=== PATIENT | female | born 1950 | race Caucasian/White ===

== ENCOUNTER 2017-04-26 23:44 | Emergency (ER) | payer OTHER ==
[~2017-04-26] VITALS: Ht 165.1 cm; Wt 81.2 kg
--- NOTE | 2017-04-26 23:44 | NUR ---
Patient to ER bed 5 to gown for evaluation. Side rails up. Report given to Pito MARIE.
--- NOTE | 2017-04-26 23:45 | NUR ---
Pt came in via ambulance. AAOX4 with complaint of itchiness, nausea, dizziness and chest tightness. Prior to ER Pt had bug bite from last night and used topical benadryl for treatment at home. No fever noted. Has HX of mitral valve prolapse and DNC. No other complaints noted. Will continue to monitor Pt.
[2017-04-26 23:50] VITALS: BP_SYST 155
[2017-04-27 00:15] LABS: BASOPHILS # (AUTO) 0.1 K/uL (0.0-0.2); BASOPHILS % (AUTO) 0.9 % (0.0-2.0); EOSINOPHILS # (AUTO) 0.2 K/uL (0.0-0.4); EOSINOPHILS % (AUTO) 2.9 % (0.0-4.0); HEMATOCRIT 36.5 % (36-48); HEMOGLOBIN 11.8 g/dL (12.0-16.0); LYMPHOCYTES # (AUTO) 1.6 K/uL (1.0-5.5); LYMPHOCYTES % (AUTO) 23.4 % (20.5-51.5); MEAN CORPUSCULAR HEMOGLOBIN 26 pg (27-31); MEAN CORPUSCULAR HGB CONC 32 % (32-36); MEAN CORPUSCULAR VOLUME 79 fL (79.0-98.0); MONOCYTES # (AUTO) 0.6 K/uL (0.0-1.0); MONOCYTES % (AUTO) 8.8 % (1.7-9.3); NEUTROPHILS # (AUTO) 4.3 K/uL (1.8-7.7); PLATELET COUNT (AUTO) 204 K/uL (130-430); RED CELL DISTRIBUTION WIDTH 14.4 % (9.0-15.0); WHITE BLOOD COUNT (AUTO) 6.8 K/uL (4.8-10.8)
[2017-04-27 00:26] LABS: CALCIUM 9.4 mg/dL (8.4-11.0); CREATININE 0.8 mg/dL (0.55-1.30); POTASSIUM 3.7 mmol/L (3.5-5.1)
[2017-04-27 00:28] LABS: PROTHROMBIN TIME 9.8 SECS (9.5-12.5)
[2017-04-27 00:32] LABS: ALBUMIN 3.4 g/dL (3.4-4.8); TOTAL BILIRUBIN 0.4 mg/dL (0.0-1.0)
--- NOTE | 2017-04-27 00:35 | NUR ---
ER MD Ngo at bedside for medical evaulation.
[2017-04-27 00:45] LABS: BILIRUBIN,URINE NEGATIVE (NEGATIVE); BLOOD, URINE NEGATIVE (NEGATIVE); CLARITY/URINE CLEAR (CLEAR); COLOR,URINE YELLOW (YELLOW); GLUCOSE,URINE NEGATIVE (NEGATIVE); KETONES,URINE NEGATIVE (NEGATIVE); LEUKOCYTE ESTERASE ,URINE TRACE (NEGATIVE); NITRITE, URINE NEGATIVE (NEGATIVE); PH,URINE 7.5 (5.0-8.0); PROTEIN URINE NEGATIVE (NEGATIVE); UROBILINOGEN,URINE 0.2 (0.2-1.0)
[2017-04-27 00:55] LABS: BACTERIA,URINE FEW /HPF (None Seen); MUCUS,URINE None Seen /LPF (None Seen); RBC,URINE 0-3 /HPF (0-3)
[2017-04-27 01:48] VITALS: BP_SYST 136
--- NOTE | 2017-04-27 01:48 | NUR ---
Patient given written and verbal discharge instructions and verbalizes understanding. ER MD Ngo discussed with patient the results and treatment provided. Patient in stable condition. ID arm band removed. Rx of triamcinolone given. Patient educated on pain management and to follow up with PMD. Pain Scale 0/10. Opportunity for questions provided and answered.
== END 2017-04-27 01:48 | disposition home or self-care (01) ==
LOC: SED 23:44
DX: S00.86XA Insect bite (nonvenomous) of other part of head, initial encounter (principal); R42 Dizziness and giddiness; R07.89 Other chest pain; R11.0 Nausea; E78.00 Pure hypercholesterolemia, unspecified; W57.XXXA Bitten or stung by nonvenomous insect and other nonvenomous arthropods, initial encounter; Y93.89 Activity, other specified; Y92.89 Other specified places as the place of occurrence of the external cause; Y99.8 Other external cause status
CPT/HCPCS: 36415; 71010; 80053; 81000-TC; 82550-TC; 83880; 84484; 85025; 85610-TC; 93005; 99285

== ENCOUNTER 2019-02-06 12:52 | Emergency (ER) | payer OTHER ==
[~2019-02-06] VITALS: Ht 165.1 cm; Wt 81.6 kg
[2019-02-06] MEDS ORDERED: FLUORESCEIN SODIUM 1 MG OPHTHALMIC STRIP OP ONE (12:53)
[2019-02-06] MEDS ORDERED: TETRACAINE HCL 0.5% OPHTHALMIC DROPS 15 ML OP ONE (12:53)
[2019-02-06 13:08] VITALS: BP_SYST 160
[2019-02-06 14:25] VITALS: BP_SYST 152
== END 2019-02-06 14:22 | disposition home or self-care (01) ==
LOC: SED 12:52
DX: S05.02XA Injury of conjunctiva and corneal abrasion without foreign body, left eye, initial encounter (principal); Z86.79 Personal history of other diseases of the circulatory system; Z88.0 Allergy status to penicillin; Z88.5 Allergy status to narcotic agent; Z88.6 Allergy status to analgesic agent; X58.XXXA Exposure to other specified factors, initial encounter; Y93.H2 Activity, gardening and landscaping; Y92.69 Other specified industrial and construction area as the place of occurrence of the external cause; Y99.8 Other external cause status; E78.00 Pure hypercholesterolemia, unspecified
CPT/HCPCS: 99283

== ENCOUNTER 2020-08-30 12:13 | Inpatient (IN) | payer OTHER ==
[~2020-08-30] VITALS: Ht 165.1 cm; Wt 79.4 kg
--- NOTE | 2020-08-30 12:20 | NUR ---
RECEIVED AND IN ROOM 4. BIB FROM HOME FOR VERTIGO SINCE AM
[2020-08-30 12:23] VITALS: BP_SYST 197
--- NOTE | 2020-08-30 12:29 | NUR ---
DR HERNANDEZ IN TO ASSESSS
[2020-08-30] MEDS ORDERED: MECLIZINE HCL 25 MG TABLET (ANITVERT) PO ONE (12:45)
[2020-08-30 12:58] LABS: BASOPHILS % (AUTO) 0.6 % (0.0-2.0); EOSINOPHILS # (AUTO) 0.1 K/uL (0.0-0.4); EOSINOPHILS % (AUTO) 1.5 % (0.0-4.0); HEMATOCRIT 47.4 % (36-48); HEMOGLOBIN 16.3 g/dL (12.0-16.0); LYMPHOCYTES % (AUTO) 16.4 % (20.5-51.5); MEAN CORPUSCULAR HEMOGLOBIN 31 pg (27-31); MEAN CORPUSCULAR HGB CONC 34 % (32-36); MEAN CORPUSCULAR VOLUME 90 fL (79.0-98.0); MONOCYTES # (AUTO) 0.4 K/uL (0.0-1.0); MONOCYTES % (AUTO) 7.4 % (1.7-9.3); NEUTROPHILS # (AUTO) 4.5 K/uL (1.8-7.7); NEUTROPHILS % (AUTO) 74.1 % (40.0-70.0); PLATELET COUNT (AUTO) 181 K/uL (130-430); RED BLOOD CELL COUNT(AUTO) 5.29 MIL/uL (4.2-6.2); RED CELL DISTRIBUTION WIDTH 12.9 % (9.0-15.0); WHITE BLOOD COUNT (AUTO) 6.1 K/uL (4.8-10.8)
[2020-08-30 13:10] LABS: ANION GAP 12 (5-15); CALCIUM 9.3 mg/dL (8.4-11.0); CHLORIDE 107 mmol/L (98-107); CREATININE 0.91 mg/dL (0.55-1.30); GLUCOSE 113 mg/dL (70-99); POTASSIUM 3.7 mmol/L (3.5-5.1); SODIUM SERUM 144 mmol/L (136-145); UREA NITROGEN, BLOOD 15 mg/dL (8-21)
[2020-08-30 13:13] LABS: GFR AFRICAN AMERICAN 79 mL/min (>90); PROTHROMBIN TIME 10.1 SECS (9.5-12.5)
[2020-08-30 13:18] LABS: ALANINE AMINOTRANSFERASE 31 U/L (12-78); ALBUMIN 3.6 g/dL (3.4-4.8); ASPARTATE AMINOTRANSFERASE 29 U/L (10-37); TOTAL BILIRUBIN 0.8 mg/dL (0.0-1.0)
--- NOTE | 2020-08-30 13:23 | NUR ---
OFF TO CT HEAD. PT ALERT, CALM, NO DISTRESS
--- NOTE | 2020-08-30 14:07 | NUR ---
REPORTS A DECREASE IN DIZZINESS
--- NOTE | 2020-08-30 14:47 | NUR ---
DR HERNANDEZ IN TO REASSESS
--- NOTE | 2020-08-30 15:08 | NUR ---
VIDEO NEURO EXAM SET UP IN ROOM.
--- NOTE | 2020-08-30 15:40 | NUR ---
UP AMBULATING STEADY TO BATHROOM, BACK IN BED NO DISTRESS
--- NOTE | 2020-08-30 16:32 | NUR ---
ADMIT ORDERS TO TELE DX R/O STROKE BJ LUBIN
--- NOTE | 2020-08-30 16:34 | NUR ---
Note hudson in ED - 08/30/20 at 1648 by KULWANT Patient does not wish to proceed with medical care recommended by ED[facility]. Patient given information related to possible complications, up to and including , which could occur as a result of leaving hospital at this time. Patient verbalizes understanding of risks involved leaving against medical advice. Patient has signed AMA form.
--- NOTE | 2020-08-30 16:54 | NUR ---
Patient will be admitted to care of [facility]. Admitted to 104 unit. Will go to room TELE. Belongings list completed. Complete and up to date summary report printed. SBAR report to be given at bedside with opportunity for questions.
[2020-08-30] MEDS ORDERED: POTASSIUM CHLORIDE 20 MEQ TAB.PRT.SR PO PRN (17:00)
[2020-08-30] MEDS ORDERED: ZOLPIDEM TARTRATE 5 MG TABLET PO PRN (17:00)
[2020-08-30] MEDS ORDERED: MAGNESIUM SULFATE 50 ML IV PRN (17:00)
[2020-08-30] MEDS ORDERED: ONDANSETRON HCL 4 MG/2 ML VIAL IVP PRN (17:00)
[2020-08-30] MEDS ORDERED: ACETAMINOPHEN 325 MG TABLET PO PRN (17:00)
[2020-08-30] MEDS ORDERED: DOCUSATE SODIUM 100 MG CAPSULE PO PRN (17:00)
[2020-08-30] MEDS ORDERED: MUPIROCIN 2% TOPICAL OINTMENT 22 GM NS PRN (17:00)
[2020-08-30] MEDS ORDERED: LORazepam 2 MG/ML VIAL IVP PRN (17:00)
[2020-08-30] MEDS: NACL 0.9% 1,000 ML IV SCH (17:00)
--- NOTE | 2020-08-30 17:00 | NUR ---
ADMISSION: The patient, [place], 69 y/o, F admitted by BERNARD LUBIN DO, was given written information regarding hospital policies, unit procedures and contact persons. obtained VS, and completed admission assessment
[2020-08-30 17:13] VITALS: BP_SYST 157
--- NOTE | 2020-08-30 17:25 | NUR ---
CONSULTATION PAGED REASON FOR CONSULTATION:R/O STROKE WAS CONSULT CALLED?Y PERSON WHO WAS NOTIFIED:'S PAGER PAGED CONSULTING PHYSICIAN:YANIQUE HORVATH [employer] SPECIALTY:NEURO [employer] PHONE NUMBER:[phone] REQUESTING PHYSICIAN:DR.SINGHMIGDALIA
--- NOTE | 2020-08-30 18:17 | NUR ---
nurse note patient in bed, respirations even, non labored, bed in low and locked position, called dietary for patients dinner
[2020-08-30 20:00] VITALS: BP_SYST 170
[2020-08-30] MEDS: METOPROLOL TARTRATE 25 MG TABLET PO SCH (20:58)
[2020-08-30] MEDS: HEPARIN SODIUM,PORCINE 5,000 UNITS/ML VIAL SUBCUT SCH (21:00)
[2020-08-30] MEDS ORDERED: HEPARIN SODIUM,PORCINE 5,000 UNITS/ML VIAL ONE (21:11)
[2020-08-31] VITALS: BP_SYST 129
[2020-08-31] MEDS: NACL 0.9% 1,000 ML IV SCH ×2 (07:03→21:36)
[2020-08-31 07:38] LABS: BASOPHILS # (AUTO) 0.1 K/uL (0.0-0.2); BASOPHILS % (AUTO) 0.9 % (0.0-2.0); EOSINOPHILS # (AUTO) 0.2 K/uL (0.0-0.4); EOSINOPHILS % (AUTO) 2.6 % (0.0-4.0); HEMATOCRIT 43.8 % (36-48); LYMPHOCYTES # (AUTO) 1.8 K/uL (1.0-5.5); LYMPHOCYTES % (AUTO) 28.3 % (20.5-51.5); MEAN CORPUSCULAR HEMOGLOBIN 31 pg (27-31); MEAN CORPUSCULAR HGB CONC 34 % (32-36); MEAN CORPUSCULAR VOLUME 91 fL (79.0-98.0); MONOCYTES # (AUTO) 0.6 K/uL (0.0-1.0); MONOCYTES % (AUTO) 9.9 % (1.7-9.3); NEUTROPHILS # (AUTO) 3.7 K/uL (1.8-7.7); NEUTROPHILS % (AUTO) 58.3 % (40.0-70.0); PLATELET COUNT (AUTO) 174 K/uL (130-430); RED BLOOD CELL COUNT(AUTO) 4.83 MIL/uL (4.2-6.2); RED CELL DISTRIBUTION WIDTH 13.1 % (9.0-15.0); WHITE BLOOD COUNT (AUTO) 6.3 K/uL (4.8-10.8)
[2020-08-31 07:46] LABS: CALCIUM 8.4 mg/dL (8.4-11.0); CREATININE 0.93 mg/dL (0.55-1.30); POTASSIUM 4.5 mmol/L (3.5-5.1)
[2020-08-31 08:00] VITALS: BP_SYST 145
--- NOTE | 2020-08-31 08:26 | NUR ---
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
[2020-08-31] MEDS ORDERED: HEPARIN SODIUM,PORCINE 5,000 UNITS/ML VIAL ONE ×2 (08:45→20:34)
[2020-08-31] MEDS: METOPROLOL TARTRATE 25 MG TABLET PO SCH ×2 (08:47→20:45)
[2020-08-31] MEDS: HEPARIN SODIUM,PORCINE 5,000 UNITS/ML VIAL SUBCUT SCH ×2 (08:54→20:49)
--- NOTE | 2020-08-31 09:25 | NUR ---
PHYSICAL THERAPY EVALUATION HAS BEEN COMPLETED. PATIENT IS SAFE TO AMBULATE WITH NURSING SUPERVISION. SHE DOES NOT NEED FURTHER PHYSICAL THERAPY. (INDEPENDENT BED MOBILITY, TRANSFERS, AND GAIT WITHOUT AN ASSISTIVE DEVICE.)
[2020-08-31 12:43] VITALS: BP_SYST 178
--- NOTE | 2020-08-31 14:16 | NUR ---
MRI PT OFF THE FLOOR AT THIS TIME TO MRI
--- NOTE | 2020-08-31 14:55 | NUR ---
MRI PT RETURNED FROM MRI. PT TOLERATED WELL.
[2020-08-31 16:38] VITALS: BP_SYST 148
[2020-08-31 20:00] VITALS: BP_SYST 145
[2020-09-01] VITALS: BP_SYST 154
--- NOTE | 2020-09-01 00:41 | NUR ---
CONSULTATION CALLED FOR DR Russell COHEN IS IS [employer] ORDER BY DR. LUBIN FOR CONSULT OF INT DIZZINESS HX OF MITRAL VALVE PROLAPSE SPOKE WITH RONAN
--- NOTE | 2020-09-01 07:22 | NUR ---
RECEIVED REPORT FROM MINNA SINGH, PT OOB IN CHAIR, RESP REG, NON-LABORED, VS DONE WNL, PT STATES SHE IS PENDING D/C TODAY.
[2020-09-01 07:25] VITALS: BP_SYST 148
[2020-09-01 07:25] LABS: BASOPHILS # (AUTO) 0.1 K/uL (0.0-0.2); BASOPHILS % (AUTO) 0.8 % (0.0-2.0); EOSINOPHILS # (AUTO) 0.2 K/uL (0.0-0.4); EOSINOPHILS % (AUTO) 3.4 % (0.0-4.0); HEMATOCRIT 43.1 % (36-48); HEMOGLOBIN 15.1 g/dL (12.0-16.0); LYMPHOCYTES # (AUTO) 1.8 K/uL (1.0-5.5); MEAN CORPUSCULAR HEMOGLOBIN 31 pg (27-31); MEAN CORPUSCULAR HGB CONC 35 % (32-36); MEAN CORPUSCULAR VOLUME 89 fL (79.0-98.0); MONOCYTES # (AUTO) 0.6 K/uL (0.0-1.0); MONOCYTES % (AUTO) 10.2 % (1.7-9.3); NEUTROPHILS # (AUTO) 3.6 K/uL (1.8-7.7); NEUTROPHILS % (AUTO) 56.6 % (40.0-70.0); PLATELET COUNT (AUTO) 173 K/uL (130-430); RED BLOOD CELL COUNT(AUTO) 4.83 MIL/uL (4.2-6.2); RED CELL DISTRIBUTION WIDTH 12.9 % (9.0-15.0); WHITE BLOOD COUNT (AUTO) 6.3 K/uL (4.8-10.8)
[2020-09-01 08:18] LABS: CALCIUM 8.2 mg/dL (8.4-11.0); CREATININE 0.73 mg/dL (0.55-1.30); POTASSIUM 3.4 mmol/L (3.5-5.1)
[2020-09-01] MEDS ORDERED: LIP20 PO (08:46)
[2020-09-01] MEDS ORDERED: METO25TA6 PO (08:50)
[2020-09-01] MEDS ORDERED: METOPROLOL TARTRATE 25 MG TABLET PO SCH (09:00)
[2020-09-01] MEDS: HEPARIN SODIUM,PORCINE 5,000 UNITS/ML VIAL SUBCUT SCH (09:00)
[2020-09-01] MEDS ORDERED: LISINOPRIL 10 MG TABLET (PRINIVIL) PO SCH (09:00)
[2020-09-01] MEDS ORDERED: HEPARIN SODIUM,PORCINE 5,000 UNITS/ML VIAL ONE (09:15)
[2020-09-01 10:05] LABS: CHOLESTEROL 156 mg/dL (<200); HDL CHOLESTEROL 43 mg/dL (>55); LDL CHOLESTEROL 90 mg/dL (<100); TRIGLYCERIDES 163 mg/dL (30-150)
[2020-09-01 10:38] VITALS: BP_SYST 106
--- NOTE | 2020-09-01 11:00 | NUR ---
D/C Patient Patient given medication reconciliation form and D/C instructions. Exit Care provided. Patient verbalized understanding. MD discussed with patient the results and treatment provided. Ambulatory with steady gait for discharge to home. Patient in stable condition, ID band removed. IV catheter removed, intact and dressing applied, no active bleeding. Rx of given. Patient educated on pain management, and safety at home. All belongings checked and sent with patient. left unit via w/c w/ STRATE[employer]IC [employer]ER, to T car.
== END 2020-09-01 11:18 | disposition home or self-care (01) | DRG 69 ==
LOC: SED 12:13 → STU 15:54
PROVIDERS: ADMIT General Practice; ATTEND General Practice
DX: G45.9 Transient cerebral ischemic attack, unspecified (principal); G90.9 Disorder of the autonomic nervous system, unspecified; G45.0 Vertebro-basilar artery syndrome; I10 Essential (primary) hypertension; E78.5 Hyperlipidemia, unspecified; E78.00 Pure hypercholesterolemia, unspecified; E66.3 Overweight; I16.0 Hypertensive urgency; I95.1 Orthostatic hypotension; Z20.822 Contact with and (suspected) exposure to COVID-19; I34.1 Nonrheumatic mitral (valve) prolapse; Z88.6 Allergy status to analgesic agent; Z88.5 Allergy status to narcotic agent; Z88.0 Allergy status to penicillin; Z68.29 Body mass index [BMI] 29.0-29.9, adult; Z86.73 Personal history of transient ischemic attack (TIA), and cerebral infarction without residual deficits
CPT/HCPCS: 36415; 70450-TC; 70551; 71045; 76376; 80048; 80053; 80061; 83036; 83735-TC; 84443-TC; 84484; 85025; 85610-TC; 93005; 93306; 93880; G0378; J1644; J8597

== ENCOUNTER 2022-09-11 19:21 | Inpatient (IN) | payer OTHER ==
[~2022-09-11] VITALS: Ht 165.1 cm; Wt 76.8 kg
[~2022-09-11 19:21] MED LIST: LIP20 PO; METO25TA6 PO
[2022-09-11 20:01] VITALS: BP_SYST 156
[2022-09-11] MEDS ORDERED: NACL 0.9% 1,000 ML IV ONE (20:15)
[2022-09-11] MEDS ORDERED: MECLIZINE HCL 25 MG TABLET (ANITVERT) PO ONE (20:15)
[2022-09-11] MEDS ORDERED: ONDANSETRON HCL 4 MG/2 ML VIAL IVP ONE ×2 (20:15→23:45)
[2022-09-11] MEDS ORDERED: KETOROLAC TROMETHAMINE 30 MG VIAL IVP ONE (20:15)
[2022-09-11 20:39] LABS: BASOPHILS % (AUTO) 0.5 % (0.0-2.0); EOSINOPHILS % (AUTO) 0.5 % (0.0-4.0); HEMATOCRIT 47.2 % (36-48); HEMOGLOBIN 16.1 g/dL (12.0-16.0); LYMPHOCYTES # (AUTO) 0.3 K/uL (1.0-5.5); LYMPHOCYTES % (AUTO) 3.9 % (20.5-51.5); MEAN CORPUSCULAR HEMOGLOBIN 31 pg (27-31); MEAN CORPUSCULAR HGB CONC 34 % (32-36); MEAN CORPUSCULAR VOLUME 90 fL (79.0-98.0); MONOCYTES # (AUTO) 0.7 K/uL (0.0-1.0); MONOCYTES % (AUTO) 10.1 % (1.7-9.3); NEUTROPHILS # (AUTO) 5.6 K/uL (1.8-7.7); PLATELET COUNT (AUTO) 199 K/uL (130-430); RED BLOOD CELL COUNT(AUTO) 5.25 MIL/uL (4.2-6.2); RED CELL DISTRIBUTION WIDTH 12.8 % (9.0-15.0); WHITE BLOOD COUNT (AUTO) 6.6 K/uL (4.8-10.8)
[2022-09-11 21:00] LABS: CALCIUM 9.5 mg/dL (8.4-11.0); CREATININE 0.93 mg/dL (0.55-1.30)
[2022-09-11 21:09] LABS: ALBUMIN 3.8 g/dL (3.4-4.8); TOTAL BILIRUBIN 0.8 mg/dL (0.0-1.0)
[2022-09-11] MEDS ORDERED: MORPHINE 4 MG INJ. 4 MG/ML VIAL IVP ONE (23:45)
[2022-09-12] MEDS ORDERED: MORPHINE 2 MG/ML INJ. SYRINGE IVP PRN (00:15)
[2022-09-12] MEDS ORDERED: ONDANSETRON HCL 4 MG/2 ML VIAL IVP PRN ×2 (00:15→08:15)
[2022-09-12 00:37] LABS: BILIRUBIN,URINE NEGATIVE (NEGATIVE); BLOOD, URINE NEGATIVE (NEGATIVE); COLOR,URINE YELLOW (YELLOW); GLUCOSE,URINE NEGATIVE (NEGATIVE); KETONES,URINE NEGATIVE (NEGATIVE); LEUKOCYTE ESTERASE ,URINE TRACE (NEGATIVE); NITRITE, URINE NEGATIVE (NEGATIVE); PH,URINE 7.5 (5.0-8.0); PROTEIN URINE NEGATIVE (NEGATIVE); UROBILINOGEN,URINE 0.2 (0.2-1.0)
[2022-09-12 00:54] LABS: CLARITY/URINE HAZY (CLEAR)
[2022-09-12 00:55] LABS: BACTERIA,URINE FEW /HPF (None Seen); RBC,URINE 0-3 /HPF (0-3)
[2022-09-12] MEDS: D5NS 1,000 ML IV SCH ×2 (01:56→13:26)
[2022-09-12 04:53] VITALS: BP_SYST 143
[2022-09-12] MEDS ORDERED: PIPERACILLIN/TAZO 3.375 GM in NS 50 ML IV SCH (06:00)
[2022-09-12 08:00] VITALS: BP_SYST 132
[2022-09-12] MEDS ORDERED: POTASSIUM CHLORIDE 20 MEQ TAB.PRT.SR PO PRN (08:15)
[2022-09-12] MEDS ORDERED: ACETAMINOPHEN 325 MG TABLET PO PRN ×2 (08:15→11:30)
[2022-09-12] MEDS ORDERED: KETOROLAC TROMETHAMINE 15 MG VIAL IVP PRN (08:15)
[2022-09-12] MEDS ORDERED: ZOLPIDEM TARTRATE 5 MG TABLET PO PRN (08:15)
[2022-09-12] MEDS ORDERED: MAGNESIUM SULFATE 50 ML IV PRN (08:15)
[2022-09-12] MEDS ORDERED: MUPIROCIN 2% TOPICAL OINTMENT 22 GM NS PRN (08:15)
[2022-09-12] MEDS ORDERED: LORazepam 2 MG/ML VIAL IVP PRN (08:15)
[2022-09-12] MEDS ORDERED: DOCUSATE SODIUM 100 MG CAPSULE PO PRN (08:15)
[2022-09-12] MEDS ORDERED: IPRATROPIUM/ALBUTEROL SULFATE 3 ML AMPUL.NEB (DUONEB) INH PRN (08:30)
[2022-09-12] MEDS: METOPROLOL TARTRATE 25 MG TABLET PO SCH ×2 (09:00→20:30)
[2022-09-12] MEDS: cefTRIAXone 1 GM in D5W 50 ML IV SCH (10:00)
[2022-09-12 10:15] VITALS: BP_SYST 135
[2022-09-12] MEDS: AZITHROMYCIN 500 MG in NS 250 ML IV SCH (11:00)
[2022-09-12 11:38] VITALS: BP_SYST 149
[2022-09-12 17:20] VITALS: BP_SYST 135
[2022-09-12] MEDS: ASCORBIC ACID 500 MG TABLET PO SCH (20:29)
[2022-09-12 20:32] VITALS: BP_SYST 136
[2022-09-13] MEDS: D5NS 1,000 ML IV SCH ×2 (01:15→13:45)
[2022-09-13 02:08] VITALS: BP_SYST 128
[2022-09-13 07:19] LABS: BASOPHILS % (AUTO) 0.3 % (0.0-2.0); EOSINOPHILS % (AUTO) 0.2 % (0.0-4.0); HEMATOCRIT 38.6 % (36-48); HEMOGLOBIN 13.2 g/dL (12.0-16.0); LYMPHOCYTES # (AUTO) 0.9 K/uL (1.0-5.5); LYMPHOCYTES % (AUTO) 18.2 % (20.5-51.5); MEAN CORPUSCULAR HEMOGLOBIN 31 pg (27-31); MEAN CORPUSCULAR HGB CONC 34 % (32-36); MEAN CORPUSCULAR VOLUME 91 fL (79.0-98.0); MONOCYTES % (AUTO) 19.1 % (1.7-9.3); NEUTROPHILS # (AUTO) 3.2 K/uL (1.8-7.7); NEUTROPHILS % (AUTO) 62.2 % (40.0-70.0); PLATELET COUNT (AUTO) 145 K/uL (130-430); RED BLOOD CELL COUNT(AUTO) 4.27 MIL/uL (4.2-6.2); RED CELL DISTRIBUTION WIDTH 12.8 % (9.0-15.0); WHITE BLOOD COUNT (AUTO) 5.1 K/uL (4.8-10.8)
[2022-09-13 07:52] LABS: CALCIUM 7.9 mg/dL (8.4-11.0); CREATININE 0.77 mg/dL (0.55-1.30)
[2022-09-13 08:00] VITALS: BP_SYST 125
[2022-09-13] MEDS: ASCORBIC ACID 500 MG TABLET PO SCH ×2 (09:33→21:26)
[2022-09-13] MEDS: CHOLECALCIFEROL (VITAMIN D3) 5,000 UNIT TABLET PO SCH (09:34)
[2022-09-13] MEDS: METOPROLOL TARTRATE 25 MG TABLET PO SCH ×2 (09:34→21:26)
[2022-09-13] MEDS: ENOXAPARIN SODIUM 30 MG/0.3 ML SYRINGE SUBCUT SCH (09:35)
[2022-09-13] MEDS: cefTRIAXone 1 GM in D5W 50 ML IV SCH (10:21)
[2022-09-13 12:00] VITALS: BP_SYST 104; BP_SYST 114
[2022-09-13] MEDS: AZITHROMYCIN 500 MG in NS 250 ML IV SCH (12:02)
[2022-09-13 16:00] VITALS: BP_SYST 116
[2022-09-13 21:27] VITALS: BP_SYST 145
[2022-09-14 02:05] VITALS: BP_SYST 149
[2022-09-14] MEDS: D5NS 1,000 ML IV SCH ×2 (02:15→14:45)
[2022-09-14 07:06] LABS: BASOPHILS % (AUTO) 0.8 % (0.0-2.0); EOSINOPHILS # (AUTO) 0.1 K/uL (0.0-0.4); EOSINOPHILS % (AUTO) 3.3 % (0.0-4.0); HEMATOCRIT 38.6 % (36-48); HEMOGLOBIN 13.4 g/dL (12.0-16.0); LYMPHOCYTES # (AUTO) 1.3 K/uL (1.0-5.5); LYMPHOCYTES % (AUTO) 33.9 % (20.5-51.5); MEAN CORPUSCULAR HEMOGLOBIN 31 pg (27-31); MEAN CORPUSCULAR HGB CONC 35 % (32-36); MEAN CORPUSCULAR VOLUME 89 fL (79.0-98.0); MONOCYTES # (AUTO) 0.7 K/uL (0.0-1.0); MONOCYTES % (AUTO) 17.3 % (1.7-9.3); NEUTROPHILS # (AUTO) 1.8 K/uL (1.8-7.7); NEUTROPHILS % (AUTO) 44.7 % (40.0-70.0); PLATELET COUNT (AUTO) 131 K/uL (130-430); RED BLOOD CELL COUNT(AUTO) 4.33 MIL/uL (4.2-6.2); RED CELL DISTRIBUTION WIDTH 12.5 % (9.0-15.0)
[2022-09-14 07:32] LABS: CALCIUM 8.1 mg/dL (8.4-11.0); CREATININE 0.68 mg/dL (0.55-1.30)
[2022-09-14 08:00] VITALS: BP_SYST 134
[2022-09-14] MEDS: ENOXAPARIN SODIUM 30 MG/0.3 ML SYRINGE SUBCUT SCH (08:42)
[2022-09-14] MEDS: METOPROLOL TARTRATE 25 MG TABLET PO SCH (08:43)
[2022-09-14] MEDS: ASCORBIC ACID 500 MG TABLET PO SCH (08:43)
[2022-09-14] MEDS: CHOLECALCIFEROL (VITAMIN D3) 5,000 UNIT TABLET PO SCH (08:43)
[2022-09-14] MEDS: cefTRIAXone 1 GM in D5W 50 ML IV SCH (09:19)
[2022-09-14] MEDS: AZITHROMYCIN 500 MG in NS 250 ML IV SCH (10:06)
[2022-09-14 12:00] VITALS: BP_SYST 122
[2022-09-14 16:00] VITALS: BP_SYST 120
[2022-09-14] MEDS ORDERED: METR-154 PO (16:45)
[2022-09-14 17:07] VITALS: BP_SYST 157
== END 2022-09-14 17:50 | disposition home or self-care (01) | DRG 444 ==
LOC: SED 19:21 → SMU 09-12 00:06
PROVIDERS: ADMIT General Practice; ATTEND General Practice
DX: K81.0 Acute cholecystitis (principal); U07.1 COVID-19; N39.0 Urinary tract infection, site not specified; I10 Essential (primary) hypertension; E78.00 Pure hypercholesterolemia, unspecified; E66.9 Obesity, unspecified; F41.9 Anxiety disorder, unspecified; J40 Bronchitis, not specified as acute or chronic; K82.8 Other specified diseases of gallbladder; Z88.6 Allergy status to analgesic agent; Z88.5 Allergy status to narcotic agent; Z88.0 Allergy status to penicillin; Z79.899 Other long term (current) drug therapy; Z68.28 Body mass index [BMI] 28.0-28.9, adult
CPT/HCPCS: 36415; 70450-TC; 71045; 76376; 76700-TC; 80048; 80053; 81000; 83037; 83605; 83690; 83735; 85025; 85379; 86140; 87040; 87086; 94760; 96361; 96374; 96375; 99285; J0456; J0696; J1650; J1885; J2270; J2405; J2543; J7050; J7060; J8597

== ENCOUNTER 2023-03-31 20:28 | Emergency (ER) | payer OTHER ==
[~2023-03-31] VITALS: Ht 165.1 cm; Wt 73.9 kg
[~2023-03-31 20:28] MED LIST changes: +METR-154 PO
[2023-03-31 20:38] VITALS: BP_SYST 156; PULSE 65; RESP 20; TEMP 97; O2SAT 97
== END 2023-03-31 22:00 | disposition left against medical advice (07) ==
LOC: SED 20:28
DX: S61.212D Laceration without foreign body of right middle finger without damage to nail, subsequent encounter (principal); Z53.21 Procedure and treatment not carried out due to patient leaving prior to being seen by health care provider; W61.91XD Bitten by other birds, subsequent encounter
CPT/HCPCS: 99281

== ENCOUNTER 2024-04-24 05:08 | Emergency (ER) | payer OTHER ==
[~2024-04-24] VITALS: Ht 165.1 cm; Wt 84.8 kg
[2024-04-24 05:23] VITALS: BP_SYST 157; PULSE 89; RESP 20; TEMP 98; O2SAT 93
[2024-04-24] MEDS: NACL 0.9% 1,000 ML IV ONE (06:08)
[2024-04-24] MEDS: METOCLOPRAMIDE HCL 10 MG/2 ML VIAL IVP ONE (06:15)
[2024-04-24] MEDS: KETOROLAC TROMETHAMINE 30 MG VIAL IVP ONE (06:19)
[2024-04-24] MEDS: ENALAPRILAT DIHYDRATE 1.25 MG/ML VIAL IVP ONE (06:23)
[2024-04-24 06:48] LABS: BASOPHILS % (AUTO) 0.4 % (0.0-2.0); EOSINOPHILS % (AUTO) 0.1 % (0.0-4.0); HEMATOCRIT 44.1 % (36-48); HEMOGLOBIN 14.9 g/dL (12.0-16.0); LYMPHOCYTES # (AUTO) 0.4 K/uL (1.0-5.5); LYMPHOCYTES % (AUTO) 8.4 % (20.5-51.5); MEAN CORPUSCULAR HEMOGLOBIN 31 pg (27-31); MEAN CORPUSCULAR HGB CONC 34 % (32-36); MEAN CORPUSCULAR VOLUME 91 fL (79.0-98.0); MONOCYTES # (AUTO) 0.5 K/uL (0.0-1.0); MONOCYTES % (AUTO) 12.2 % (1.7-9.3); NEUTROPHILS # (AUTO) 3.5 K/uL (1.8-7.7); NEUTROPHILS % (AUTO) 78.9 % (40.0-70.0); PLATELET COUNT (AUTO) 100 K/uL (130-430); RED BLOOD CELL COUNT(AUTO) 4.85 MIL/uL (4.2-6.2); RED CELL DISTRIBUTION WIDTH 12.6 % (9.0-15.0); WHITE BLOOD COUNT (AUTO) 4.5 K/uL (4.8-10.8)
[2024-04-24 06:49] LABS: BILIRUBIN,URINE NEGATIVE (NEGATIVE); BLOOD, URINE 1+ (NEGATIVE); CLARITY/URINE CLEAR (CLEAR); COLOR,URINE YELLOW (YELLOW); GLUCOSE,URINE NEGATIVE (NEGATIVE); KETONES,URINE NEGATIVE (NEGATIVE); LEUKOCYTE ESTERASE ,URINE 1+ (NEGATIVE); NITRITE, URINE NEGATIVE (NEGATIVE); PROTEIN URINE TRACE (NEGATIVE); UROBILINOGEN,URINE 0.2 (0.2-1.0)
[2024-04-24 07:25] LABS: BACTERIA,URINE RARE /HPF (None Seen); HYALINE CASTS, URINE 0-1 /LPF (None Seen)
[2024-04-24 07:26] LABS: ANION GAP 9 (5-15); CALCIUM 8.7 mg/dL (8.4-11.0); CARBON DIOXIDE 28 mmol/L (23-29); CHLORIDE 103 mmol/L (98-107); CREATININE 0.86 mg/dL (0.55-1.30); GLUCOSE 131 mg/dL (74-106); POTASSIUM 3.5 mmol/L (3.5-5.1); SODIUM SERUM 140 mmol/L (136-145); UREA NITROGEN, BLOOD 21 mg/dL (8-21)
[2024-04-24] MEDS ORDERED: ONDA-8 TL (08:22)
[2024-04-24] MEDS ORDERED: MORPHINE 4 MG INJ. 4 MG/ML VIAL IVP ONE (08:30)
[2024-04-24 08:48] VITALS: BP_SYST 130; PULSE 88; RESP 20; TEMP 97; O2SAT 94
== END 2024-04-24 08:50 | disposition home or self-care (01) ==
LOC: SED 05:08
DX: R51.9 Headache, unspecified (principal); R11.2 Nausea with vomiting, unspecified; R53.1 Weakness; I10 Essential (primary) hypertension; E78.00 Pure hypercholesterolemia, unspecified; Z98.890 Other specified postprocedural states; Z88.0 Allergy status to penicillin; Z88.5 Allergy status to narcotic agent; Z88.6 Allergy status to analgesic agent; Z79.899 Other long term (current) drug therapy
CPT/HCPCS: 99285; 96374; 70450; 96375; 96361; 80048; 81001; 85025; 87086; 36415; J1885; J2765; J7030; 81000; 81015